=== PATIENT | female | born 1960 ===

== ENCOUNTER 2016-10-04 20:10 | Emergency (ER) | payer OTHER ==
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
[2016-10-04] MEDS ORDERED: MOTRIN PO ONE (22:40)
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
[2016-10-05 00:21] VITALS: BP 166/94
== END 2016-10-05 00:25 | disposition home or self-care (01) ==
LOC: ED 20:10
DX: S16.1XXA Strain of muscle, fascia and tendon at neck level, initial encounter (principal); M54.6 Pain in thoracic spine; M25.511 Pain in right shoulder; M50.30 Other cervical disc degeneration, unspecified cervical region; M51.34 Other intervertebral disc degeneration, thoracic region; V49.59XA Passenger injured in collision with other motor vehicles in traffic accident, initial encounter; Y93.9 Activity, unspecified; Y92.9 Unspecified place or not applicable; Y99.9 Unspecified external cause status
CPT/HCPCS: 72040; 72072

== ENCOUNTER 2020-05-17 01:42 | Emergency (ER) | payer SELFPAY ==
[2020-05-17 02:29] LABS: Basophils % (Auto) 0.4 % (0.0-1.8); Eosinophils # (Auto) 0.1 K/mm3 (0.0-0.4); Eosinophils % (Auto) 1.4 % (0.0-4.3); Hemoglobin 12.1 gm/dl (10.1-14.3); Lymphocytes # (Auto) 1.5 K/mm3 (1.2-5.4); Lymphocytes % (Auto) 20.6 % (13.4-35.0); Mean Corpuscular HGB Conc 34 % (30-34); Mean Corpuscular Volume 90 fl (79-97); Monocytes # (Auto) 0.5 K/mm3 (0.0-0.8); Monocytes % (Auto) 7.3 % (0.0-7.3); Platelet Count 248 K/mm3 (140-440); Red Cell Distribution Width 14.1 % (13.2-15.2)
[2020-05-17 02:40] LABS: Alanine Aminotransferase 10 units/L (7-56); Albumin 4.3 g/dL (3.9-5); Blood Urea Nitrogen 18 mg/dL (7-17); Calcium 9.2 mg/dL (8.4-10.2); Hemolysis Index 3
[2020-05-17] MEDS ORDERED: KETOROLAC 30 MG/1 ML INJ IV ONE (02:47)
[2020-05-17] MEDS ORDERED: diphenhydrAMINE 50 MG/ML VIAL IV ONE (02:47)
[2020-05-17] MEDS ORDERED: METOCLOPRAMIDE 10 MG/2 ML INJ IV ONE (02:47)
[2020-05-17] MEDS ORDERED: ONDANSETRON 4 MG/2 ML INJ IV ONE (02:56)
[2020-05-17] MEDS ORDERED: MORPHINE 4 MG/1 ML INJ IV ONE (02:56)
--- NOTE | 2020-05-17 02:58 | Emergency Department Report ---
ED Headache HPI - General Chief Complaint: Headache Stated Complaint: HIGH BP/HEADACHE/WEAKNESS Time Seen by Provider: 05/17/20 02:47 Source: patient Exam Limitations: no limitations - History of Present Illness Initial Comments: 60-year-old female with a past medical history of carpal tunnel and gastric bypass presents to the hospital complaining of headache x10 days acutely w orsening this evening. Patient has had a constant headache in the posterior head radiating to the front for 10 days. She woke up at 11 PM with sudden popping sensation in her head with worsening headache which is still posterior radiating to the front. Patient had nausea and vomiting the past 3 days which has since resolved. Patient denies fever or history of headache syndrome patient taking [id number] NSAIDs intimately for pain. Patient complains of worsening pain to the posterior head with movement of her neck. Patient also complains of feeling dizzy. Allergies/Adverse Reactions: Allergies Penicillins Allergy (Verified 10/04/16 20:18) Rash Home Medications: Ambulatory Orders Cyclobenzaprine [Flexeril] 10 mg PO TID PRN #15 tablet 10/05/16 Ibuprofen [Motrin] 600 mg PO Q8H PRN #15 tablet 10/05/16 ED Review of Systems ROS: Stated complaint: HIGH BP/HEADACHE/WEAKNESS Other details as noted in HPI Comment: All other systems reviewed and negative ED Past Medical Hx - Past Medical History Hx Headaches / Migraines: Yes Additional medical history: Carpel tunnel - Surgical History Additional Surgical History: Rt knee, Gastric Bypass - Social History Smoking Status: Never Smoker Substance Use Type: None - Medications Home Medications: Home Medications Medication Instructions Recorded Confirmed Last Taken Type Cyclobenzaprine [Flexeril] 10 mg PO TID PRN #15 tablet 10/05/16 Unknown Rx Ibuprofen [Motrin] 600 mg PO Q8H PRN #15 tablet 10/05/16 Unknown Rx ED Physical Exam - General Limitations: No Limitations - Other Other exam information: General: No acute distress Head: Atraumatic Eyes: normal appearance ENT: Moist mucous membranes Neck: Normal appearance, pain to posterior occiput with neck flexion Chest: Clear to auscultation bilaterally CV: Regular rate and rhythm Abdomen: Soft, normal bowel sounds, nontender, nondistended, no rebound or guarding Back: Normal inspection Extremity: Normal inspection, full range of motion Neuro: Alert O x 3, no facial asymmetry, speech clear, patient complains of mild decrease in sensation palpation of left arm. GCS equals 15 Psych: Appropriate behavior Skin: No rash ED Course Vital Signs 05/17/20 05/17/20 05/17/20 01:49 01:50 03:00 Temperature 97.6 F Pulse Rate 68 80 Respiratory 18 18 15 Rate Blood Pressure 193/82 Blood Pressure 184/95 [Left] O2 Sat by Pulse 100 100 Oximetry - Consultations Consultation #1: 05/17/20 03:[address] to [facility] however, they stated they will have to call as backslash they are currently working on an emergent transfer 05/17/20 03:10 Call placed to [facility] 05/17/20 03:[address] Sincere Niño neurosurgeon for transfer. Recommends [facility] ED Medical Decision Making - Lab Data Result diagrams: 05/17/20 02:05 05/17/20 02:05 Lab Results 05/17/20 05/17/20 Range/Units 02:05 02:05 WBC 7.3 (4.5-11.0) K/mm3 RBC 4.00 (3.65-5.03) M/mm3 Hgb 12.1 (10.1-14.3) gm/dl Hct 36.0 (30.3-42.9) % MCV 90 (79-97) fl MCH 30 (28-32) pg MCHC 34 (30-34) % RDW 14.1 (13.2-15.2) % Plt Count 248 (140-440) K/mm3 Lymph % (Auto) 20.6 (13.4-35.0) % [place] % (Auto) 7.3 (0.0-7.3) % Eos % (Auto) 1.4 (0.0-4.3) % Baso % (Auto) 0.4 (0.0-1.8) % Lymph # 1.5 (1.2-5.4) K/mm3 [place] # 0.5 (0.0-0.8) K/mm3 Eos # 0.1 (0.0-0.4) K/mm3 Baso # 0.0 (0.0-0.1) K/mm3 Seg Neutrophils % 70.3 H (40.0-70.0) % Seg Neutrophils # 5.1 (1.8-7.7) K/mm3 Sodium 140 (137-145) mmol/L Potassium 4.4 (3.6-5.0) mmol/L Chloride 102.3 (98-107) mmol/L Carbon Dioxide 25 (22-30) mmol/L Anion Gap 17 mmol/L BUN 18 H (7-17) mg/dL Creatinine 0.7 (0.6-1.2) mg/dL Estimated GFR > 60 ml/min BUN/Creatinine Ratio 26 % Glucose 117 H (65-100) mg/dL Calcium 9.2 (8.4-10.2) mg/dL Total Bilirubin 0.20 (0.1-1.2) mg/dL AST 18 (5-40) units/L ALT 10 (7-56) units/L Alkaline Phosphatase 101 (35-129) units/L Total Protein 7.4 (6.3-8.2) g/dL Albumin 4.3 (3.9-5) g/dL Albumin/Globulin Ratio 1.4 % - Radiology Data Radiology results: report reviewed Examination: CT of the head without contrast Clinical information: Headache for one week. Comparison: None Technical: Multiple axial CT images of the head were obtained without intravenous contrast. Sagittal and coronal reformats were obtained. All CTs at this facility utilize dose reduction techniques including automated exposure control, iterative reconstruction and weight based dosing when appropriate to reduce patient radiation dose to as low as reasonable achievable. Findings: There is subtle high density layered throughout the basal cisterns bilaterally. There is no evidence of mass effect or midline shift. The ventricular system appears normal in size. Evaluation of bony structures demonstrates no evidence of acute bony abnormality. The visualized paranasal sinuses are clear. Impression: 1. Subtle high density throughout the basal cisterns concerning for a small amount of subarachnoid hemorrhage. Positive critical value of possible intracranial hemorrhage was identified at approximately 1:45 AM Central time and personally communicated to Dr. Zuluaga in the Emergency Department at 1:55 AM Central time. - Medical Decision Making Patient complains of headache x10 days acutely worsening this evening and CT positive for probable subarachnoid hemorrhage. I initially ordered Benadryl, Reglan, and Toradol for headache. However, I received critical CT head results of subarachnoid hemorrhage and therefore Reglan and Toradol canceled. Patient had already received Benadryl 50 mg. Morphine and Zofran added to medications. Patient is drowsy after medications which I suspect is secondary to Benadryl. She remains oriented x3 and able to follow commands with clear speech. Patient treated with Cardene drip to control blood pressure with a goal of systolic of 150, Keppra for seizure prophylaxis, and [facility]. Stat CT angiogram head and neck requested. Patient pending transfer to [facility] Critical Care Time: Yes Critical care time in (mins) excluding proc time.: 35 Critical care attestation.: If time is entered above; I have spent that time in minutes in the direct care o f this critically ill patient, excluding procedure time. ED Disposition Clinical Impression: Subarachnoid hemorrhage, Uncontrolled hypertension Disposition: DC/TX-70 ANOTHER TYPE HLTHCARE Is pt being admited?: No Condition: Stable - Assessment Assessment Interval: Baseline - Level of Consciousness 1a. Level of Consciousness: alert/keenly responsive - LOC Questions 1b. LOC Questions: answers both correctly - LOC Command 1c. LOC Commands: performs tasks correctly - Best Gaze 2. Best Gaze: normal - Visual 3. Visual: no visual loss - Facial Palsy 4. Facial Palsy: normal symmetrical movement - Motor Arm 5a. Motor Arm Left: no drift 5b. Motor Arm Right: no drift - Motor Leg 6a. Motor Leg Left: no drift 6b. Motor Leg Right: no drift - Limb Ataxia 7. Limb Ataxia: absent - Sensory 8. Sensory: mild/moderate sensory loss (left arm) - Best Language 9. Best Language: no aphasia - Dysarthria 10. Dysarthria: normal - Extinction and Inattention 11. Extinction/Inattention: no abnormality - Scoring Total Score: 1 Stroke Severity: Minor Stroke
--- NOTE | 2020-05-17 03:00 | Cat Scan Report ---
Examination: CT of the head without contrast Clinical information: Headache for one week. Comparison: None Technical: Multiple axial CT images of the head were obtained without intravenous contrast. Sagittal and coronal reformats were obtained. All CTs at this facility utilize dose reduction techniques inc luding automated exposure control, iterative reconstruction and weight based dosing when appropriate to reduce patient radiation dose to as low as reasonable achievable. Findings: There is subtle high density layered throughout the basal cisterns bilaterally. There is no evidence of mass effect or midline shift. The ventricular system appears normal in size. Evaluation of bony structures demonstrates no evidence of acute bony abnormality. The visualized para nasal sinuses are clear. Impression: 1. Subtle high density throughout the basal cisterns concerning for a small amount of subarachnoid h emorrhage. Positive critical value of possible intracranial hemorrhage was identified at approximately 1:45 AM C entral time and personally communicated to Dr. Zuluaga in the Emergency Department at 1:55 AM [facility]. Signer Name: Beba Wagner MD Signed: 05/17/2020 2:56 AM Workstation Name: [id number]
[2020-05-17] MEDS ORDERED: levETIRAcetam 1000 MG/NS 0.75% 1,000 MG/100 ML BAG IV ONE (03:01)
[2020-05-17] MEDS ORDERED: niCARdipine DRIP 40 MG/200 ML BAG ONE (03:09)
[2020-05-17 03:18] LABS: BUN/Creatinine Ratio 26
[2020-05-17] MEDS ORDERED: NICARDIPINE IV SCH ×2 (03:24→04:00)
[2020-05-17] MEDS ORDERED: SODIUM CHLORIDE 0.9% IV SCH ×2 (03:24→04:00)
[2020-05-17] MEDS ORDERED: AMINOCAPROIC ACID 5,000 MG in SODIUM CHLORIDE 0.9% 100 ML IV ONE (03:28)
[2020-05-17 04:24] VITALS: BP 131/77
--- NOTE | 2020-05-17 07:06 | Cat Scan Report ---
CTA NECK WITH CONTRAST 05/17/2020 INDICATION / CLINICAL INFORMATION: Headache x 1 week, dizziness. Bleed seen on Non-contrast CT Head. COMPARISON: None. TECHNIQUE: Routine CTA of the neck is performed. 3-D/MIP reformats were postprocessed. Percentage st enosis is determined by direct quantitative measurements of diseased internal carotid artery diameter compared with normal distal internal carotid artery reference segments or by criteria similar to BERT CET where applicable. All CT scans at this location are performed using CT dose reduction for ALARA b y means of automated exposure control. CONTRAST: 100 ml of Isovue 370 FINDINGS: Carotid bifurcations: No significant abnormality. Carotid arteries: No significant abnormality. Cervical vertebral arteries: No significant abnormality. Aortic arch: No significant abnormality. None. IMPRESSION: No significant abnormality. Signer Name: Noah Cassidy MD Signed: 05/17/2020 7:01 AM Workstation Name: [id number]
--- NOTE | 2020-05-17 07:15 | Cat Scan Report ---
HEAD CT ANGIOGRAM 05/17/2020 HISTORY: Subarachnoid hemorrhage FINDINGS: Contrast-enhanced CT angiographic images of the intracranial circulation were obtained. In addition to the axial images, sagittal and coronal reformatted images were obtained. In addition, 3 p kirit MIP reconstructions were produced. There is a 5 mm aneurysm arising from the left side of the vicinity of the anterior communicating art angel luis, directed anteriorly and inferiorly from its origin, with a well-defined neck. In addition, there is a 3-4 mm aneurysm arising from the right middle cerebral artery trifurcation, d irected anterolaterally. There is no evidence of vessel occlusion. The caliber of the middle and anterior cerebral arteries is relatively narrow, which can be normal va riant, although can also be evidence of vasospasm. 6 Vertebrobasilar system is intact. Normal opacification of major dural sinuses and deep venous structures is noted. 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 There is no evidence of acute osseous abnormality. IMPRESSION: 1. 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 Discussed with ED 0605. Patient transferred. All CT scans at this location are performed using dose reduction to ALARA by means of automated expos ure control. Signer Name: Noah Cassidy MD Signed: 05/17/2020 7:11 AM Workstation Name: [id number]
== END 2020-05-17 04:37 | disposition other institution (70) ==
LOC: ED 01:42
DX: I60.8 Other nontraumatic subarachnoid hemorrhage (principal); I10 Essential (primary) hypertension
CPT/HCPCS: 36415; 70450; 70496; 70498; 80053; 85025; 96365; 96367; 96368; 96375; 99285; J1200; J1885; J1953; J2270; J2405; J2765; J7050; Q9967